=== PATIENT | male | born 1955 | race Caucasian/White ===

== ENCOUNTER 2017-03-08 12:02 | Inpatient (IN) ==
[2017-03-08 17:00] LABS: Hematocrit 26.7 % (37.5-50.1); Hemoglobin 9.4 g/dL (12.9-16.9); Immature Granulocytes % 13.5 % (0-4); Lymphocytes % 50.8 %; Mean Corpuscular HGB Conc 35.2 g/dL (31.6-35.5); Mean Corpuscular Hemoglobin 29.9 pg (28.0-33.3); Monocytes # 0.1 K/mcL (0.0-1.3); Monocytes % 11.1 %; Neutrophils # 0.3 K/mcL (1.6-8.9); Red Blood Count 3.14 M/mcL (4.19-5.50); Red Cell Distribution Width 14.3 % (11.5-14.5); Segmented Neutrophils % 24.6 %
[2017-03-08 17:01] LABS: Lymphocytes # 0.7 K/mcL (0.6-4.6); Platelet Count 42 K/mcL (140-400)
[2017-03-08 17:06] LABS: INR 1.3
[2017-03-08 17:08] LABS: Activated Partial Thrombo Time 30.4 Seconds (26.0-36.0)
[2017-03-08 17:13] LABS: eGFR For African Americans > 60 (> 60); eGFR For Non-African Americans > 60 (> 60)
[2017-03-08] MEDS: Gabapentin 100 MG CAPSULE PO SCH (20:17)
[2017-03-08] MEDS: *HR* HYDROcodone/Acet 5/325 mg TABLET PO PRN (20:17)
[2017-03-08] MEDS: ALPRAZolam 1 MG TABLET PO SCH ×2 (22:01→22:50)
[2017-03-08] MEDS: Nicotine 21 MG PATCH.TD24 TD SCH (22:49)
[2017-03-08] MEDS: Petrolatum, White OINT.PACK TP SCH (22:57)
[2017-03-09 05:15] LABS: INR 1.3; Prothrombin Time 13.9 Seconds (9.4-12.1)
[2017-03-09 05:16] LABS: Hematocrit 27.6 % (37.5-50.1); Hemoglobin 9.6 g/dL (12.9-16.9); Mean Corpuscular HGB Conc 34.8 g/dL (31.6-35.5); Mean Corpuscular Hemoglobin 29.9 pg (28.0-33.3); Red Blood Count 3.21 M/mcL (4.19-5.50); Red Cell Distribution Width 14.3 % (11.5-14.5)
[2017-03-09 05:18] LABS: Activated Partial Thrombo Time 28.6 Seconds (26.0-36.0)
[2017-03-09 05:25] LABS: eGFR For African Americans > 60 (> 60); eGFR For Non-African Americans > 60 (> 60)
[2017-03-09 05:47] LABS: Platelet Count 34 K/mcL (140-400)
[2017-03-09] MEDS: *HR* HYDROcodone/Acet 5/325 mg TABLET PO PRN ×4 (05:51→23:49)
[2017-03-09 05:58] LABS: Lymphocytes # 0.2 K/mcL (0.6-4.6); Monocytes # 0.1 K/mcL (0.0-1.3); Neutrophils # 0.7 K/mcL (1.6-8.9)
[2017-03-09 06:00] LABS: Platelet Estimate Marked Decrease (Normal)
[2017-03-09 06:01] LABS: Anisocytosis 1+ (Not Present); Poikilocytosis 1+ (Not Present)
[2017-03-09] MEDS: Nicotine 21 MG PATCH.TD24 TD SCH (09:06)
[2017-03-09] MEDS: Gabapentin 100 MG CAPSULE PO SCH ×3 (09:06→20:55)
[2017-03-09] MEDS: ALPRAZolam 1 MG TABLET PO SCH ×2 (09:06→15:02)
[2017-03-09] MEDS: Petrolatum, White OINT.PACK TP SCH ×2 (11:57→20:56)
--- NOTE | 2017-03-09 16:52 | Internal Med History&Physical ---
Date of Encounter: 03/09/17 Time of Encounter: 16:20 Assessment and Plan (1) MDS (myelodysplastic syndrome) Current visit: No Status: Acute As per oncologist (2) Physical deconditioning Current visit: No Status: Acute PT and OT evaluations have been ordered Internal Medicine - H&P: HPI Chief complaint: MDS Admitted From: Hospital to Hospital Transfer Plans for Post Hospital Care: Home History of present illness: Mr. Haas is a 61 year old male who was hospitalized at [facility] March 03- March 08 for pancytopenia. He was diagnosed with myelodysplastic syndrome RAEB-1 and received red blood cell and platelet transfusions. He was stabilized and admitted to [facility] swing bed for ongoing therapy. He had multiple radiographic studies and CT of T-spine without contrast showed sclerotic lesions in T10 and T12 vertebral body suspicious for metastatic disease. He denies previous diagnosis of anemia or malignancy. Past Med Surg Social Fam HX - Past Medical History Medical history: no medical history Psychiatric history: anxiety, depression - Past Surgical History Surgical History: orthopedic, other - Social History Smoking Status: Current every day smoker Packs per day: 1 1/2 Smokeless Tobacco Status: No Alcohol use: none Drug use: none - Family History Grandmother History Unknown: Yes Family Member Ethnicity: Non- Living Status: Hx Family Cancer: Yes (colon cancer) Internal Medicine - H&P: Meds Citalopram Hydrobromide [Citalopram HBr] 40 mg PO DAILY 02/26/17 [History] Alprazolam [Xanax] 2 mg PO TID #20 tablet 03/08/17 [Rx] Cyclobenzaprine [Flexeril] 10 mg PO TID PRN #30 tablet 03/08/17 [Rx] Gabapentin [Neurontin] 100 mg PO TID #0 capsule 03/08/17 [Rx] HYDROcodone/Acet 5/325 mg [[place] 5-325 mg] 1 tab PO Q6HR PRN #20 tablet [Rx] Petrolatum, white [Vaseline] 1 appl TP BID 7 Days #1 oint.pack 03/08/17 [Rx] 3 Allergy/AdvReac Type Severity Reaction Status Date / Time No Known Allergies Allergy Verified 02/26/17 15:37 All Systems PM: A 10-system review of systems was performed and is negative for pertinent findings except as documented above in the HPI. Review of systems: Gen.: His weight has decreased approximately 5 pounds in the past year Cardiovascular: He denies MS hypertension heart failure angina DVT or pulmonary embolus Respiratory: He has smoked since age 16 up to 2 packs per day. He denies chronic lung disease and does not use home oxygen GI: He denies disorders of his liver gallbladder or exocrine pancreas : He denies hematuria dysuria or kidney stones Neurologic: He denies large distribution strokes or seizures. Endocrine: He denies diabetes or thyroid disease or hyperlipidemia Hematology/oncology: As per history of present illness Psychiatric: He has anxiety and depression but denies other mental health issues [place] skeletal: He has DJD but no known gout. He had ankle surgery 2001. He has had bilateral fifth finger surgeries. - Constitutional Vitals: Temp Pulse Resp BP Pulse Ox 98.5 F 98 16 118/81 100 03/09/17 06:49 03/09/17 10:49 03/09/17 06:49 03/09/17 10:49 03/09/17 10:49 Exam: Gen.: He is a well-developed well-nourished male lying quietly in bed who appears in no acute distress HEENT: Head is atraumatic and normocephalic. Eyes: EOMI. There is no scleral icterus. Mouth: Mucosa is moist. Neck: Supple and nontender. There is no thyromegaly or adenopathy noted. Heart: Regular without murmurs gallops or ectopics Lungs: No wheezes or crackles are heard. Abdomen: Soft and nontender. No masses or guarding noted. Extremities: There is no cyanosis edema or clubbing noted. Dorsalis pedis and posterior tibial pulses are trace to 1+ palpable bilaterally. Neurologic: Mental status: He is talkative and a good historian. He appears slightly lethargic. Cranial nerves: Smile is symmetric. Forehead wrinkles bilaterally. Tongue protrudes midline. EOMI. Motor: There is no pronator drift. Cerebellar: Finger to nose is intact bilaterally. Skin: Warm and dry Internal Med - H&P Results - Labs CBC & Chem 7: 03/09/17 04:46 03/09/17 04:46 Labs: Short CBC 03/08/17 03/09/17 Range/Units 16:51 04:46 WBC 1.3 L 1.0 L* (4.3-11.1) K/mcL Hgb 9.4 L 9.6 L (12.9-16.9) g/dL Hct 26.7 L 27.6 L (37.5-50.1) % Plt Count 42 L 34 L (140-400) K/mcL Neutrophils # 0.3 L 0.7 L (1.6-8.9) K/mcL BMP 03/08/17 03/09/17 16:51 04:46 Creatinine 0.75 0.71 L
[2017-03-10] MEDS: Nicotine 21 MG PATCH.TD24 TD SCH (10:08)
[2017-03-10] MEDS: ALPRAZolam 1 MG TABLET PO SCH ×3 (10:08→22:23)
[2017-03-10] MEDS: Gabapentin 100 MG CAPSULE PO SCH ×3 (10:08→22:22)
--- NOTE | 2017-03-10 10:20 | Internal Med Progress Note ---
Date of Encounter: 03/10/17 Time of Encounter: 10:10 - Assessment and plan (1) MDS (myelodysplastic syndrome) Current Visit: No Status: Acute Assessment and plan: March 10. As per oncologist (2) Physical deconditioning Current Visit: No Status: Acute Assessment and plan: March 10. Continue PT and OT intervention. I explained to him the rationale for decreasing Xanax to avoid oversedation and lessen fall risk in view of his pancytopenia. - Subjective Interval history: March 10. He still feels dyspneic and weak on exertion. - Constitutional Vitals: Temp Pulse Resp BP Pulse Ox 98.7 F 91 16 125/76 98 03/10/17 07:15 03/10/17 07:15 03/10/17 07:15 03/10/17 07:15 03/10/17 07:15 Exam: He is resting comfortably in bed. He is less groggy and is very appropriate in conversation. I reviewed his medications and lab results. Internal Medicine: Result - Labs CBC & Chem 7: 03/09/17 04:46 03/09/17 04:46 - ABG Interpretation ABG results: PT/INR, D-dimer PT 13.9 Seconds (9.4-12.1) H 03/09/17 04:46 Consult Discharge Plan - Plan Referrals: Josh Miller MD [Primary Care Provider] - 1 week
[2017-03-10] MEDS: Petrolatum, White OINT.PACK TP SCH ×2 (15:13→22:24)
[2017-03-11 05:52] LABS: Hematocrit 25.9 % (37.5-50.1); Hemoglobin 9.4 g/dL (12.9-16.9); Lymphocytes # 0.5 K/mcL (0.6-4.6); Mean Corpuscular HGB Conc 36.3 g/dL (31.6-35.5); Mean Corpuscular Volume 82.7 fL (83.0-100.0); Nucleated Red Blood Cells 1.8 /100 WBC (0); Red Blood Count 3.13 M/mcL (4.19-5.50); Red Cell Distribution Width 13.9 % (11.5-14.5)
[2017-03-11 06:00] LABS: Platelet Count 13 K/mcL (140-400)
[2017-03-11 07:41] LABS: Monocytes # 0.3 K/mcL (0.0-1.3); Neutrophils # 0.6 K/mcL (1.6-8.9)
[2017-03-11 07:43] LABS: Microcytosis Present (Not Present); Ovalocytes 1+ (Not Present); Plasma Cells Present (Not Present); Platelet Estimate Decreased (Normal)
[2017-03-11] MEDS: Gabapentin 100 MG CAPSULE PO SCH ×3 (08:39→20:25)
[2017-03-11] MEDS: ALPRAZolam 1 MG TABLET PO SCH ×3 (08:39→20:25)
[2017-03-11] MEDS: Nicotine 21 MG PATCH.TD24 TD SCH (08:39)
[2017-03-11] MEDS: Petrolatum, White OINT.PACK TP SCH ×2 (08:40→20:26)
[2017-03-12] MEDS: Nicotine 21 MG PATCH.TD24 TD SCH (08:03)
[2017-03-12] MEDS: Gabapentin 100 MG CAPSULE PO SCH ×3 (08:03→20:46)
[2017-03-12] MEDS: ALPRAZolam 1 MG TABLET PO SCH ×3 (08:04→20:46)
[2017-03-12] MEDS: Petrolatum, White OINT.PACK TP SCH (08:06)
--- NOTE | 2017-03-12 12:24 | Internal Med Progress Note ---
Date of Encounter: 03/12/17 Time of Encounter: 12:15 - Assessment and plan (1) MDS (myelodysplastic syndrome) Current Visit: No Status: Acute Assessment and plan: March 10. As per oncologist (2) Physical deconditioning Current Visit: No Status: Acute Assessment and plan: March 10. Continue PT and OT intervention. I explained to him the rationale for decreasing Xanax to avoid oversedation and lessen fall risk in view of his pancytopenia. March 12. Continue present intervention. Anticipate discharge home tomorrow. - Subjective Interval history: March 10. He still feels dyspneic and weak on exertion. March 12. He has no new complaints. He has generally constant pain in his legs - Constitutional Vitals: Temp Pulse Resp BP Pulse Ox 98.2 F 88 17 120/78 99 03/12/17 06:27 03/12/17 06:27 03/12/17 06:27 03/12/17 06:27 03/12/17 06:27 Exam: He is resting in bed and appears in no severe distress. His affect is bright and cheerful. I reviewed his medications and lab results. Internal Medicine: Result - Labs CBC & Chem 7: 03/11/17 04:30 03/09/17 04:46 - ABG Interpretation ABG results: PT/INR, D-dimer PT 13.9 Seconds (9.4-12.1) H 03/09/17 04:46 Consult Discharge Plan - Plan Referrals: Josh Miller MD [Primary Care Provider] - 1 week
[2017-03-12] MEDS: *HR* HYDROcodone/Acet 5/325 mg TABLET PO PRN ×2 (13:22→20:59)
[2017-03-12] MEDS ORDERED: Methyl Salicylate/Menthol 28 GM TUBE TP PRN (15:19)
[2017-03-13 08:36] VITALS: BP 126/84
[2017-03-13] MEDS: Gabapentin 100 MG CAPSULE PO SCH (08:37)
[2017-03-13] MEDS: ALPRAZolam 1 MG TABLET PO SCH (08:37)
[2017-03-13] MEDS: Nicotine 21 MG PATCH.TD24 TD SCH (08:37)
--- NOTE | 2017-03-13 09:41 | Discharge Summary ---
Date of Encounter: 03/13/17 Time of Encounter: 09:30 - Discharge Diagnosis (1) MDS (myelodysplastic syndrome) Priority: Primary Status: Acute (2) Physical deconditioning Priority: Secondary Status: Acute - Discharge Medications Home Medications: Citalopram Hydrobromide [Citalopram HBr] 40 mg PO DAILY 02/26/17 [History] Cyclobenzaprine [Flexeril] 10 mg PO TID PRN #30 tablet 03/08/17 [Rx] Gabapentin [Neurontin] 100 mg PO TID #0 capsule 03/08/17 [Rx] HYDROcodone/Acet 5/325 mg [[place] 5-325 mg] 1 tab PO Q6HR PRN #20 tablet [Rx] Petrolatum, white [Vaseline] 1 appl TP BID 7 Days #1 oint.pack 03/08/17 [Rx] Alprazolam [Xanax] 1 mg PO TID #20 tablet 03/13/17 [Rx] Allergies/Adverse Reactions: 3 Allergy/AdvReac Type Severity Reaction Status Date / Time No Known Allergies Allergy Verified 02/26/17 15:37 Date of admission: 03/08/17 14:27 Primary care physician: Josh Miller MD Consults: 03/08/17 15:34 Consult to Physical Therapy [CONS] Routine Comment: Evaluate, develop and implement POC Reason for Consult: Evaluate, develop and implement POC 03/08/17 15:36 Consult to Occupational Therapy [CONS] Routine Comment: Evaluate, develop and implement POC Reason for Consult: Evaluate, develop and implement POC - Patient Status Disposition: Home, Self-Care Condition: Good Functional capacity at discharge: independent ambulation Overall status at discharge: patient is progressing back to baseline - Ambulatory Orders Ambulatory Orders: Complete Blood Count [HEME] Time Frame: 3 Days, Facility: [facility], Location: Lab Complete Blood Count [HEME] Time Frame: 03/11/17, Facility: [facility], Location: Lab Complete Blood Count [HEME] Time Frame: 03/14/17, Facility: [facility], Location: Lab Complete Blood Count [HEME] Time Frame: 03/17/17, Facility: [facility], Location: Lab Complete Blood Count [HEME] Time Frame: 03/20/17, Facility: [facility], Location: Lab Complete Blood Count [HEME] Time Frame: 03/23/17, Facility: [facility], Location: Lab Complete Blood Count [HEME] Time Frame: 03/26/17, Facility: [facility], Location: Lab Type and Screen [BBK] Time Frame: 3 Days, Facility: [facility], Location: Lab Type and Screen [BBK] Time Frame: 03/11/17, Facility: [facility], Location: Lab Type and Screen [BBK] Time Frame: 03/14/17, Facility: [facility], Location: Lab Type and Screen [BBK] Time Frame: 03/17/17, Facility: [facility], Location: Lab Type and Screen [BBK] Time Frame: 03/20/17, Facility: [facility], Location: Lab Type and Screen [BBK] Time Frame: 03/23/17, Facility: [facility], Location: Lab Type and Screen [BBK] Time Frame: 03/26/17, Facility: [facility], Location: Lab - Discharge Instructions Follow Up With: Josh Miller MD [Primary Care Provider] - 1 week - Diet and Activity Activity: as per physical therapy Diet: advance to your usual diet Hospital course: Mr. Haas is a 61 year old male who was hospitalized at [facility] March 03- March 08 for pancytopenia. He was diagnosed with myelodysplastic syndrome RAEB-1 and received red blood cell and platelet transfusions. He was stabilized and admitted to [facility] swing bed for ongoing therapy. He had multiple radiographic studies and CT of T-spine without contrast showed sclerotic lesions in T10 and T12 vertebral body suspicious for metastatic disease. Initial orders were written by the emergency room physician. I saw him on March 09 and performed the swing bed history and physical. He had physical therapy and occupational therapy evaluation with ongoing intervention. He made satisfactory progress. I reduced his Xanax dose to 1 mg 3 times a day after performing H&P because of appearance of oversedation. He improved significantly and will remain on the lower dose at discharge. He will be discharged home and follow with his PCP Dr. Miller within 1 week. He will follow with paper sorter and counter/oncologist as scheduled next week. - Time Spent with Patient Total time spent providing and/or coordinating discharge services: - Constitutional Vitals: Temp Pulse Resp BP Pulse Ox 98.5 F 101 18 126/84 100 03/12/17 18:26 03/13/17 08:36 03/12/17 18:26 03/13/17 08:36 03/13/17 08:36
--- NOTE | 2017-03-13 09:47 | Physician Discharge Referral ---
Home Health/Hosp Referral Info Transfer to: Home Health Attending Provider: [place] Provider in Charge Post Discharge: PCP (Josh Miller M.D.) - Diagnosis (1) MDS (myelodysplastic syndrome) Priority: Primary Status: Acute (2) Physical deconditioning Priority: Secondary Status: Acute - Respiratory Orders Smoking Cessation: Smoking cessation has been advised. For more information, call the [place] Tobacco Quit Line at 3-334-DRHK-NOW. - Diet/Nutrition Diet/Nutrition Orders: Regular - Activity Activity Orders: Ambulate - Services Needed Following services are medically necessary services: Nursing, Home Health Aide, Physical Therapy, Occupational Therapy - Transfer Medications Home Medications: Citalopram Hydrobromide [Citalopram HBr] 40 mg PO DAILY 02/26/17 [History] Cyclobenzaprine [Flexeril] 10 mg PO TID PRN #30 tablet 03/08/17 [Rx] Gabapentin [Neurontin] 100 mg PO TID #0 capsule 03/08/17 [Rx] HYDROcodone/Acet 5/325 mg [[place] 5-325 mg] 1 tab PO Q6HR PRN #20 tablet [Rx] Petrolatum, white [Vaseline] 1 appl TP BID 7 Days #1 oint.pack 03/08/17 [Rx] Alprazolam [Xanax] 1 mg PO TID #20 tablet 03/13/17 [Rx] Allergies/Adverse Reactions: 3 Allergy/AdvReac Type Severity Reaction Status Date / Time No Known Allergies Allergy Verified 02/26/17 15:37 Certification: Further, I certify that my clinical findings support that this patient is homebound (i.e. absences from home require considerable and taxing effort and are for medical reasons or scientology services or infrequently or short duration when for other reasons) because: Homebound Reason: Leaving home requires considerable and taxing effort due to condition (Dyspnea on exertion) Attestation: My signature below is to certify that this patient is under my care and that I, or nurse practitioner, or a physician's healthcare administrative assistant working with me, has a face-to -face encounter with this patient.
== END 2017-03-13 10:04 | disposition home or self-care (01) | DRG 946 ==
LOC: INPPIK 14:27
PROVIDERS: ADMIT Internal Medicine; ATTEND Internal Medicine